=== PATIENT | male | born 1990 | race Caucasian/White ===

== ENCOUNTER 2019-02-18 15:53 | Emergency (ER) | payer BC ==
[~2019-02-18] VITALS: Ht 185.4 cm; Wt 84.4 kg
--- NOTE | 2019-02-18 16:22 | NUR ---
Christiane. AAOX4. C/O nausea, went to urgent care this morning with flu like symptoms. Pt states he feels nauseous, -vomiting. RR even and unlabored. Awaiting MD for eval. placed on monitor and pulse ox.
--- NOTE | 2019-02-18 16:24 | NUR ---
PT PLACED IN GOWN.
[2019-02-18] MEDS ORDERED: ONDANSETRON HCL/PF 4 MG/2 ML VIAL IVP ONE (16:30)
[2019-02-18] MEDS ORDERED: ACETAMINOPHEN 325 MG TABLET PO ONE (16:30)
[2019-02-18] MEDS ORDERED: IV NS 0.9% 1,000 ML BAG IV ONE (16:30)
[2019-02-18] MEDS ORDERED: ONDANSETRON HCL/PF 4 MG/2 ML VIAL ONE (16:33)
[2019-02-18] MEDS ORDERED: ACETAMINOPHEN ES 500 MG TABLET ONE (16:34)
--- NOTE | 2019-02-18 16:41 | NUR ---
Patient is resting comfortably in bed. Easily aroused. VSS.
--- NOTE | 2019-02-18 18:00 | NUR ---
PT TEMP 99.0
--- NOTE | 2019-02-18 18:00 | NUR ---
Patient discharged to home in stable condition. Written and verbal after care instructions given. Patient verbalizes understanding of instruction and RX. IV removed. Catheter intact and site benign. Pressure and 4x4 applied to site. No bleeding noted. PT ambulatory with a steady gait.
[2019-02-18 18:06] VITALS: BP 126/74
== END 2019-02-18 18:09 | disposition home or self-care (01) ==
LOC: ER 15:55
DX: J11.1 Influenza due to unidentified influenza virus with other respiratory manifestations (principal); I10 Essential (primary) hypertension; K21.9 Gastro-esophageal reflux disease without esophagitis; R00.0 Tachycardia, unspecified
CPT/HCPCS: 96374; 99283; J2405; J7030

== ENCOUNTER 2020-07-29 14:34 | Emergency (ER) | payer BC ==
[~2020-07-29] VITALS: Ht 185.4 cm; Wt 86.2 kg
--- NOTE | 2020-07-29 15:00 | NUR ---
SENT BY OUTPATIENT PSYCHIATRIST FOR EVALUATION DUE TO PATIENT VERBALIZES SUICIDAL THOUGHTS. NO PLAN AT THIS TIME. SITTER AT BEDSIDE FOR SAFETY. CHANGED INTO GOWN.
--- NOTE | 2020-07-29 15:20 | NUR ---
URINE SENT TO LAB.
[2020-07-29 15:25] LABS: BILIRUBIN,URINE NEGATIVE (NEGATIVE); COLOR,URINE YELLOW (YELLOW); LEUKOCYTE ESTERASE ,URINE NEGATIVE (NEGATIVE); NITRITE, URINE NEGATIVE (NEGATIVE); PROTEIN,URINE NEGATIVE (NEGATIVE); UGLUCOSE NEGATIVE (NEGATIVE)
[2020-07-29 15:26] LABS: BASOPHILS % (AUTO) 0.7 % (0.0-2.0); EOSINOPHILS % (AUTO) 2.6 % (0.0-6.0); HEMATOCRIT 48 % (39-51); HEMOGLOBIN 16.1 g/dL (13.5-17.5); LYMPHOCYTES # (AUTO) 1.7 /CMM (0.8-4.8); LYMPHOCYTES % (AUTO) 27.7 % (20.0-44.0); MEAN CORPUSCULAR HGB CONC 34 g/dl (31.0-36.0); MEAN CORPUSCULAR VOLUME 87 fL (80-96); MONOCYTES # (AUTO) 0.3 /CMM (0.1-1.30); MONOCYTES % (AUTO) 5.7 % (2.0-12.0); NEUTROPHILS # (AUTO) 3.9 /CMM (1.8-8.9); NEUTROPHILS % (AUTO) 63.3 % (43.0-81.0); PLATELET COUNT (AUTO) 165 /CMM (150-450); RED BLOOD CELL COUNT(AUTO) 5.44 MIL/uL (4.5-6.0); WHITE BLOOD COUNT (AUTO) 6.2 K/uL (4.3-11.0)
[2020-07-29 15:35] LABS: CALCIUM, SERUM 9.1 mg/dL (8.5-10.1); CARBON DIOXIDE 29 mmol/L (21-32); CHLORIDE 104 mmol/L (98-107); CREATININE 1.2 mg/dL (0.6-1.3); GLUCOSE 101 mg/dL (74-106); SODIUM SERUM 143 mmol/L (136-145); UREA NITROGEN, BLOOD 12 mg/dL (7-18)
[2020-07-29 15:41] LABS: ALANINE AMINOTRANSFERASE 38 U/L (12-78); ALBUMIN 4.5 g/dL (3.4-5.0); ALCOHOL, BLOOD < 3 mg/dL (0-0); ALKALINE PHOSPHATASE 52 U/L (46-116); ASPARTATE AMINOTRANSFERASE 25 U/L (15-37); BILIRUBIN,DIRECT 0.3 mg/dL (0.0-0.2); BILIRUBIN,TOTAL 1.7 mg/dL (0.2-1.0); TOTAL PROTEIN, SERUM 7.7 g/dL (6.4-8.2)
[2020-07-29 15:45] LABS: ACETAMINOPHEN 0 ug/ml (10-30)
--- NOTE | 2020-07-29 15:55 | NUR ---
DANIEL called [employer] Clerk, Kip Garza [phone] who stated he will evaluate this patient at his earliest convenience.
--- NOTE | 2020-07-29 15:55 | NUR ---
SS consult: SS consult requested for SI w/no plan. The pt. is a 30-year-old male. DANIEL met with pt. bedside. The pt. appears well-groomed and is A&O X 4. The pt. makes good eye contact and is restless, shaking his leg and fidgeting hands. The pt. is guarded speech is WNL. Pt. denies HI and denies hallucinations. Pt. did not specify a plan for suicide. However, he states he has been thinking about different ways in which he can potentially end his life. Pt. stated, "I cannot trust myself right now". Pt. denies having engaged in any self-destructive behavior recently. The pt. stated that he has been clinically depressed for about 9 years and has always experienced intermittent SI. However, per pt. his symptoms of SI have recently worsened. Per pt., he spoke to his therapist, Dr. Tresa Cabrera [phone] last night who encouraged him to be evaluated at a hospital. Pt. states he also sees psychiatrist, Dr. Henna Xie [phone] regularly. Pt. states he has been diagnosed with Bipolar Disorder & OCD and is currently compliant with medications: Fluvoxamine, Abilify, & Lamotrigine. DANIEL offered pt. voluntary admission to psychiatric hospital for treatment. Pt. refused voluntary admission. DANIEL provided pt. with mental health resources & pt. accepted them. DANIEL discussed pt. be evaluated by life care planner with Dr. Mcrae and MD is agreeable to plan. DANIEL called [employer] Worker, Kip Garza [phone] who stated he will evaluate this patient at his earliest convenience. DANIEL explored pt.'s living situation. Pt. states he resides at [address] [place] [address]. [address] with 2 roommates, one of which is his friend. Per pt. his support system includes his fianc: Myriam Pham [phone]. Pt. stated he has family in [place] and [place] whom he is also in communication with. DANIEL explored pt.'s dug & ETOH use. Pt. stated that he drinks beer occasionally and it is not a problem for him and denies drug use. Mental Health resources provided include: Counseling--Outpatient [address], [place] [address] (Specializes in in-depth psychotherapy for emotional distress: anxiety, depression, interpersonal conflicts, life transitions, childhood abuse) [facility] [address] [place] [address] (Assist with solving problem marital difficulties, separation & divorce, aging parents, & grief, chronic & terminal illness) [facility] [address] [place] [address] (Deal with loss & grief, anxiety, marital difficulties) Homebound/Mental Health Services [address] [facility] [address] [place] [address] (Provide in-home mental services to people who are incapable of leaving their homes) [facility] [address] [place], [place] [id number] [facility] [address] [place], [place] [id number] PSYCHIATRIC OUTPATIENT SERVICES [facility] Partial Hospitalization and Intensive Outpatient Program (Managed Care and [place] Only) [address] [facility] [address]; [phone] [facility] Partial Hospitalization and Outpatient Program [address] [facility] [place] [address]; [phone] [facility] Partial Hospitalization and Outpatient Program [address] [facility] [place] [address]; [phone] [facility] [id number] [facility] [address] [place], [place] [phone] [facility] Partial Hospitalization and Outpatient [address] [place] ; [phone] ;[phone] [facility] [address] [facility] [address] [facility] Paulina [facility] [address] [place] [address] Services: Outpatient therapy for children, teens, young adults, adults, older adults, and families; Psychiatric services, medication support [place] [facility] and Hotline Telephone Numbers: 24-Hour service unless stated [place] Mental Health/Crisis Line........[phone] Suicide Prevention Center (24 Hours).......[phone] Suicide Prevention Crisis Center.......[phone] (24 Hours) Alcoholics Anonymous (24 Hours)..........[phone] National Crisis Hotlines: Alcohol and Drug Helpline - Provides referrals to local facilities where adolescents and adults can seek help. Brief intervention. [facility] Helpline [facility] [place] [facility] 8-821-351-HALINA National Youth Crisis Hotline [facility] Provides free information on specific disorders, referral directory to mental health providers, national directory of local mental health associations (M-F, 9-5 EST) National [place] of Mental [facility] Information Line: Provide sinformation and literature on mental illness by disorder-for professionals and general public.
[2020-07-29 16:04] LABS: WBC,URINE 0-2 /HPF (0-3)
[2020-07-29 16:05] LABS: BACTERIA,URINE RARE /HPF (None Seen); MUCUS,URINE Few /LPF (None Seen); SQUAMOUS EPITHELIAL CELL,UR 0-2 /HPF (None Seen)
--- NOTE | 2020-07-29 16:06 | NUR ---
COVID SWAB SENT TO LAB.
--- NOTE | 2020-07-29 17:00 | NUR ---
ART P[employer]CEL[employer] BUILDUP ASSISTANT AT BEDSIDE FOR EVAL
[2020-07-29 17:51] VITALS: BP 115/85
--- NOTE | 2020-07-29 17:51 | NUR ---
Patient discharged to home in stable condition. Written and verbal after care instructions given. Patient verbalizes understanding of instruction.
== END 2020-07-29 17:52 | disposition home or self-care (01) ==
LOC: ER 14:37
DX: F31.9 Bipolar disorder, unspecified (principal); F42.9 Obsessive-compulsive disorder, unspecified; Z20.822 Contact with and (suspected) exposure to COVID-19; R45.851 Suicidal ideations
CPT/HCPCS: 36415; 80048; 80076; 80143; 80307; 80320; 81001; 85025; 87426; 99283; C9803; G0480